=== PATIENT | female | born 1965 | race Two or more races ===

== ENCOUNTER 2020-04-05 14:20 | Outpatient (CLI) | payer OTHER | END 2020-04-05 14:33 | disposition home or self-care (01) | LOC: RAD 14:20 | PROVIDERS: ATTEND Internal Medicine Cardiovascular Disease | DX: M75.81 Other shoulder lesions, right shoulder (principal); M75.51 Bursitis of right shoulder ==

== ENCOUNTER → 2025-03-17 | Emergency (ER) | payer OTHER ==
[~2025-03-17] VITALS: Ht 162.6 cm; Wt 73.9 kg
[~2025-03-17] MED LIST: CEFTRIAXONE SODIUM 1,000 MG VIAL IM ONE; KETOROLAC TROMETHAMINE 60 MG VIAL IM ONE; MEDROLPACK PO; PEPCID AC20 MG PO
[2025-03-17 11:19] LABS: BASO % 0.4 % (0.1-1.2); EOS # 0.11 (0.04-0.54); EOS % 1.4 % (0.7-7.0); LYMPH # 2.52 (1.18-3.74); LYMPH % 32.8 % (19.3-53.1); MEAN PLATELET VOLUME 9.80 fl (9.4-12.4); MONO # 0.44 (0.24-0.82); MONO % 5.7 % (4.7-12.5); NEUT # 4.57 (1.56-6.13); NEUT % 59.4 % (34.0-71.1); RED CELL DISTRIBUTION WIDTH 13.0 % (11.6-14.4)
[2025-03-17 11:27] LABS: ERYTHROCYTE SEDIMENTATION RATE 9 mm/hr (0-30)
[2025-03-17 11:46] LABS: ALT/SGPT 18.0 U/L (12-78); AST/SGOT 12.0 U/L (15-37); BILIRUBIN TOTAL 0.71 mg/dL (0.3-1.2); BUN CREA RATIO 20.0 (7.0-25.0); CREATININE SERUM 0.7 mg/dL (0.55-1.02); GFR 85.35; GLOBULINA 3.5 G/DL (2.4-3.5); GLUCOSE FASTING 72.0 mg/dL (65-100); OSMOLALITY SERUM 280.0 MOSM/KG (275-295)
[2025-03-17 11:48] LABS: URINE APPEARANCE Clear; URINE BILIRRUBIN Negative (NEGATIVE); URINE BLOOD Negative; URINE COLOR Yellow; URINE GLUCOSE Negative (NEGATIVE); URINE LEUKOCYTE Negative; URINE NITRATE Negative; URINE PROTEIN Negative (NEGATIVE); URINE UROBILINOGEN 0.2 E.U./dl
[2025-03-17 11:49] LABS: URINE BACTERIA 38.3 uL (0.0-1933); URINE EPITHELIAL CELLS 7.5 uL (0.0-38.8); URINE RBC 49.7 uL (0.0-20.8); URINE WBC 3.6 uL (0.0-23.2)
[2025-03-17 12:03] LABS: URINE CAST 0.43 uL (0.0-1.40); URINE KETONE 40 (NEGATIVE)
== END | disposition home or self-care (01) ==
LOC: ER 09:06
PROVIDERS: General Practice
DX: M79.672 Pain in left foot (principal); Z88.2 Allergy status to sulfonamides; L03.116 Cellulitis of left lower limb; M10.9 Gout, unspecified